=== PATIENT | male | born 1995 | race Caucasian/White ===

== ENCOUNTER → 2024-09-21 | Outpatient (CLI) | payer OTHER ==
[~2024-09-21] MED LIST: IBUP600 PO; Norco 5-325 Ta1 EACH PO; Zantac150 MG PO
== END | disposition home or self-care (01) ==
LOC: LAB 18:00 → LAB SHORT 18:00
DX: R19.8 Other specified symptoms and signs involving the digestive system and abdomen (principal)
CPT/HCPCS: 87070; 87075; 87077; 87147; 87186; 87205